=== PATIENT | female | born 1965 | race Caucasian/White ===

== ENCOUNTER 2024-12-04 15:33 | Emergency (ER) | payer OTHER ==
[~2024-12-04] VITALS: Ht 170.2 cm; Wt 89.9 kg
[2024-12-04 15:34] VITALS: TEMP 97.7
--- NOTE | 2024-12-04 16:04 | ED.PDOC ---
Eye-HPI HPI Comments 59 year old female presents to the emergency department with a chief complaint of Rt eye redness onset 2 days. She woke up 2 days ago, noticed eye redness. This morning, she noticed redness worsened, Rt eye is tender to touch, went to Urgent Care and was referred to ED. No other symptoms or modifying factors present at this time. Denies vision changes Denies eye discharge Denies hearing changes, nausea, vomiting Denies eye pain denies head injury Denies headache LOC Denies nausea vomiting Chief Complaint: Eye Problem Time Seen by MD: 15:55 Primary Care Provider: NONE Allergies: Coded Allergies: NO KNOWN ALLERGIES (Unverified , 06/14/11) Mode of Arrival: Ambulatory Past Medical History PAST MEDICAL HISTORY: Denies Surgical History: Denies all surgeries SENIOR MANAGER QUALITY ASSURANCE History: No Pertinent SENIOR MANAGER QUALITY ASSURANCE History Family History Family History: Unknown Social History Smoker: Non-Smoker Alcohol: Denies ETOH Use Drugs: Denies Drug Use Lives In: Home All Other Systems: Reviewed and Negative (as per HPI) Physical Exam General Appearance: Normal HEENT: TMs Normal, Other (RT medial sclera injected, does not cross over to pupil and iris. No hyphema EOMS intact PERRLA, visual acuity 20/20) Neck: Full Range of Motion, Non-Tender, Normal, Normal Inspection Respiratory: Chest Non-Tender, Lungs Clear, No Accessory Muscle Use, No Respiratory Distress, Normal Breath Sounds Cardiovascular: No Edema, No JVD, No Murmur, No Gallop, Normal Peripheral Pulses, Regular Rate/Rhythm Breast Exam: Deferred Gastrointestinal: No Organomegaly, Non Tender, No Pulsatile Mass, Normal Bowel Sounds, Soft Genitalia: Deferred Pelvic: Deferred Rectal: Deferred Extremities: No calf tenderness, Normal capillary refill, Normal inspection, Normal range of motion, Non-tender, No pedal edema Musculoskeletal : Apperance: Normal Neurologic: Alert, 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 Was a procedure done?: No EENT DIFF Eye: Other X-Ray, Labs, Meds, VS Vital Signs Date Time Temp Pulse Resp B/P (MAP) Pulse Ox O2 Delivery O2 Flow Rate FiO2 12/04/ 16:10 66 18 129/79 (96) 94 12/04/24 16:10 64 18 94 Room Air 12/04/24 15:34 97.7 69 16 132/77 98 97.7 X-Ray, Labs, Meds, VS Comment 59 year old female presents to the emergency department with a chief complaint of Rt eye redness onset 2 days. Patient arrives alert and oriented, ABC's intact, afebrile, vital signs stable, saturating well in room air Additional MDM Review of External, Non-ED records: External records reviewed. Discussion with independent historian (EMS, family) history obtained from the patient/parents (if applicable) at bedside Chronic conditions affecting care: None Social determinants of health affecting care: None I considered escalation of care to admission for this patient, however given the reassuring workup, the patient is safe for outpatient management. On reevaluation, patient had symptomatic improvement. Patient is stable for discharge at this time. External notes reviewed. Test results and diagnostic imaging interpreted. All diagnostic findings, discharge care, education and instructions provided Follow-up with PCP in 2 to 3 days Patient verbalized understanding and agreed to treatment plan Vital signs stable, afebrile, no acute distress noted Patient ambulatory with strong steady gait Advised to return precautions for any new or worsening symptoms, return to ER immediately for re-evaluation Patient is aware that the purpose of this visit was for an acute medical emergency requiring emergent stabilization. Chronic conditions, including malignancies have not been ruled out. Patient is instructed to follow up with PCP as directed and discharge instructions for continued care and workup. If unable to arrange follow-up, patient is to return to the emergency department for reassessment. Patient (parent or legal guardian if applicable) was given verbal and written discharge instructions and acknowledges understanding. Time of 1ST Reevaluation: 16:25 Reevaluation 1ST: Improved Patient Education/Counseling: Diagnosis, Treatment, Prognosis Family Education/Counseling: Other SEPSIS Sepsis Screen Date sepsis recognized/suspect: Dec 04, 2024 Time Sepsis recognized/suspect: 1535 Recent Procedure: No On Antibiotic Therapy: No Respiratory Rate >20: No Heart Rate >90: No Temp<36 C (96.8 F) or >38.3 C: No SBP <90 or MAP <65 mmHG: No New Acute Mental Status Change: No Is the patient on CPAP, BIPAP,: No Vital Signs Date Time Temp Pulse Resp B/P (MAP) Pulse Ox O2 Delivery O2 Flow Rate FiO2 12/04/24 16:10 66 18 129/79 (96) 94 12/04/24 16:10 64 18 94 Room Air 12/04/24 15:34 97.7 69 16 132/77 98 97.7 Departure 1 Departure Time of Disposition: 16:01 Impression: Primary Impression: Subconjunctival hemorrhage of right eye Disposition: 01 HOME / SELF CARE / HOMELESS Condition: Stable Discharged With: Self Critical Care Note Critical Care Time?: No Stability Stability form required: No Heart Score Heart Score: Heart Score Response (Comments) Value History N/A 0 EKG N/A 0 Age N/A 0 Risk Factors N/A 0 Troponin N/A 0 Total 0 I personally scribed for TATUM PENA NP ([email or web address]) on 12/04/24 at 16:03. Electro nically submitted by Kimberley Ardon ([email or web address]). TATUM PENA NP Dec 04, 2024 16:03
[2024-12-04 16:10] VITALS: BP 129/79; PULSE 64; RESP 18; O2SAT 94
== END 2024-12-04 16:14 | disposition home or self-care (01) ==
LOC: ER 15:33
DX: H11.31 Conjunctival hemorrhage, right eye (principal); Z79.899 Other long term (current) drug therapy